=== PATIENT | female | born 1970 | race Caucasian/White ===

== ENCOUNTER → 2017-10-05 09:59 | Outpatient (CLI) | payer MEDICARE ==
[2011-03-18 10:22] VITALS: BMI 32.7
== END | disposition home or self-care (01) ==
LOC: D.US 09:59
DX: I12.9 Hypertensive chronic kidney disease with stage 1 through stage 4 chronic kidney disease, or unspecified chronic kidney disease (principal); N18.3 Chronic kidney disease, stage 3 (moderate); Z68.33 Body mass index [BMI] 33.0-33.9, adult

== ENCOUNTER 2018-05-15 05:53 | Emergency (ER) | payer MEDICARE ==
[~2018-05-15] VITALS: Ht 162.6 cm; Wt 75.0 kg
[2018-05-15 05:59] VITALS: Ht 162.6 cm; Wt 75.0 kg
[2018-05-15 06:40] LABS: BASOPHILS 0.6 % (0-2); EOSINOPHILS 3.3 % (0-7); HEMATOCRIT 33.8 % (36.0-48.0); IMMATURE GRANULOCYTES 0.2 % (0-5); LYMPHOCYTES 34.5 % (15-50); MCH 29.6 pg (26.0-34.0); MCHC 32.5 g/dL (31.0-37.0); MCV 90.9 fL (80.0-100.0); MEAN PLATELET VOLUME 9.9 fL (7.4-10.4); MONOCYTES 9.6 % (2-11); NEUTROPHILS 51.8 % (40-80); RBC 3.72 10x6/uL (4.00-5.40); WBC 9.7 10x3/uL (4.8-10.8)
[2018-05-15 06:43] LABS: ALBUMIN 3.2 g/dL (3.4-5.0); ANION GAP 8.2 mmol/L (8-16); BILIRUBIN - TOTAL 0.25 mg/dL (0.2-1.3); CALCIUM 8.7 mg/dL (8.5-10.1); CARBON DIOXIDE 29.7 mmol/L (21.0-32.0); CREATININE - SERUM 1.1 mg/dL (0.6-1.3); POTASSIUM - SERUM 3.9 mmol/L (3.5-5.1); PROTEIN - SERUM 7.2 g/dL (6.4-8.2)
[2018-05-15 06:44] LABS: PLATELET COUNT 322 10x3/uL (130-400)
[2018-05-15 06:47] LABS: APPEARANCE SL CLDY (CLEAR); BILIRUBIN NEGATIVE (NEGATIVE); COLOR YELLOW (YELLOW); GLUCOSE NEGATIVE (NEGATIVE); KETONE NEGATIVE (NEGATIVE); NITRITE POSITIVE (NEGATIVE); PROTEIN NEGATIVE (NEGATIVE); UROBILINOGEN NORMAL (NORMAL)
[2018-05-15 06:48] LABS: BACTERIA FEW /hpf (NONE SEEN); EPITHELIAL CELLS 0-5 /hpf (0-5); RED CELLS - URINE 0-5 /hpf (0-5); WHITE CELLS - URINE 0-5 /hpf (0-5)
[2018-05-15] MEDS ORDERED: KEFLEX500 MG PO (08:48)
[2018-05-15] MEDS ORDERED: PROTONIX40 MG PO (08:48)
[2018-05-15] MEDS ORDERED: MACROBID100 MG PO (08:48)
[2018-05-15] MEDS ORDERED: LEVSIN/ANASP0.125 MG PO (08:51)
[2018-05-15 09:05] VITALS: BP 100/64
== END 2018-05-15 09:00 | disposition home or self-care (01) ==
LOC: D.ER 05:53
PROVIDERS: Family Medicine
DX: R10.9 Unspecified abdominal pain (principal); R10.13 Epigastric pain; N39.0 Urinary tract infection, site not specified

== ENCOUNTER 2020-02-16 08:50 | Inpatient (IN) | payer MEDICARE ==
[~2020-02-16] VITALS: Ht 162.6 cm; Wt 86.2 kg
[~2020-02-16 08:50] MED LIST: KEFLEX500 MG PO; LEVSIN/ANASP0.125 MG PO; MACROBID100 MG PO; PROTONIX40 MG PO
[2020-02-16 09:12] LABS: BASOPHILS 0.5 % (0-2); EOSINOPHILS 6.1 % (0-7); HEMATOCRIT 37.7 % (36.0-48.0); HEMOGLOBIN 12.1 g/dL (12-16); IMMATURE GRANULOCYTES 0.1 % (0-5); MCH 28.7 pg (26.0-34.0); MCHC 32.1 g/dL (31.0-37.0); MCV 89.5 fL (80.0-100.0); MEAN PLATELET VOLUME 10.2 fL (7.4-10.4); MONOCYTES 9.3 % (2-11); RBC 4.21 10x6/uL (4.00-5.40); RDW 13.7 % (11.5-14.5); WBC 7.6 10x3/uL (4.8-10.8)
[2020-02-16 09:15] LABS: PLATELET COUNT 242 10x3/uL (130-400)
[2020-02-16 09:18] LABS: BILIRUBIN NEGATIVE (NEGATIVE); GLUCOSE NEGATIVE (NEGATIVE); KETONE NEGATIVE (NEGATIVE); NITRITE NEGATIVE (NEGATIVE); SPECIFIC GRAVITY 1.005 (1.005-1.020); UROBILINOGEN NORMAL (NORMAL)
[2020-02-16 09:20] LABS: BACTERIA FEW /hpf (NEGATIVE); EPITHELIAL CELLS 0-5 /hpf (0-5); RED CELLS - URINE 0-5 /hpf (0-5)
[2020-02-16 09:28] LABS: CALC OSMOLALITY 274 mosm/kg (275-300); CALCIUM 8.8 mg/dL (8.5-10.1); CARBON DIOXIDE 27.3 mmol/L (21.0-32.0); CHLORIDE - SERUM 102 mmol/L (98-107); POTASSIUM - SERUM 3.3 mmol/L (3.5-5.1); SODIUM 136 mmol/L (136-145); UREA NITROGEN 9 mg/dL (7-18); eGFR NON AFRICAN AMERICAN 62 mL/min (90-120)
[2020-02-16 09:33] LABS: GLUCOSE 177 mg/dL (74-106)
[2020-02-16 09:38] LABS: ALBUMIN 3.6 g/dL (3.4-5.0); ALKALINE PHOSPHATASE 283 U/L (30-120); ALT (SGPT) 296 U/L (10-68); AMYLASE - SERUM 15 U/L (25-115); BILIRUBIN - TOTAL 1.23 mg/dL (0.2-1.3); PROTEIN - SERUM 7.5 g/dL (6.4-8.2)
[2020-02-16 09:39] LABS: LIPASE 39 U/L (73-393); TROPONIN-I < 0.017 ng/mL (0.000-0.060)
--- NOTE | 2020-02-16 10:18 | NUR ---
PT TO CT VIA STRETCHER.
--- NOTE | 2020-02-16 13:30 | NUR ---
arrived to unit per w/c from er, iv to rac, cont to monitor pain
[2020-02-16] MEDS ORDERED: AMITRIPTYLINE100 MG PO (13:54)
[2020-02-16 13:56] VITALS: BP 137/89; BMI 32.7
[2020-02-16] MEDS ORDERED: MOBIC7.5 MG PO (15:57)
[2020-02-16] MEDS ORDERED: ROPINIROLE HCL2 MG PO (15:57)
[2020-02-16] MEDS ORDERED: LEXAPRO20 MG PO (15:58)
[2020-02-16] MEDS ORDERED: BACLOFEN10 MG PO (15:59)
[2020-02-16] MEDS ORDERED: ATIVAN0.5 MG PO (15:59)
[2020-02-16] MEDS ORDERED: ZOCOR40 MG PO (16:00)
[2020-02-16] MEDS ORDERED: ZETIA10 MG PO (16:00)
[2020-02-16 20:08] VITALS: BP 150/98
--- NOTE | 2020-02-16 21:30 | NUR ---
PT SUPINE IN BED, A&0 X 4. IN TEARS. REPORTS PAIN LEVEL IS BACK UP. INFORMED PT IT IS TOO EARLY FOR PRN PAIN MEDICATION, SUGGESTED PRN ANXIETY MED TO HELP PT CALM DOWN. SHE AGREED. PT REPORTS SHE FEELS LONELY AND WISHES ALL HER FAMILY COULD BE HERE. INFORMED PT SHE COULD HAVE A VISITOR, BUT PT STATES NO ONE IS ABLE.
[2020-02-17] VITALS (12 sets, daily range): BP systolic 119–152; BP diastolic 73–773; Ht 162.6 cm; Wt 86.2 kg
--- NOTE | 2020-02-17 03:00 | NUR ---
I have reviewed this patient and I concur with the Shift Assessment completed by the Licensed Practical Nurse today this shift.
[2020-02-17 05:20] LABS: BASOPHILS 1.5 % (0-2); EOSINOPHILS 9.1 % (0-7); HEMATOCRIT 36.4 % (36.0-48.0); HEMOGLOBIN 11.3 g/dL (12-16); IMMATURE GRANULOCYTES 0.2 % (0-5); LYMPHOCYTES 32.8 % (15-50); MCH 28.3 pg (26.0-34.0); MEAN PLATELET VOLUME 10.6 fL (7.4-10.4); MONOCYTES 8.2 % (2-11); NEUTROPHILS 48.2 % (40-80); PLATELET COUNT 241 10x3/uL (130-400); RDW 13.8 % (11.5-14.5); WBC 6.5 10x3/uL (4.8-10.8)
[2020-02-17 05:35] LABS: APTT 34.1 SECONDS (22.8-39.4); INR 1.06 (0.85-1.17); PROTIME 13.7 SECONDS (11.6-15.0)
[2020-02-17 05:42] LABS: AMYLASE - SERUM 12 U/L (25-115); CALC OSMOLALITY 277 mosm/kg (275-300); CALCIUM 8.3 mg/dL (8.5-10.1); CARBON DIOXIDE 28.8 mmol/L (21.0-32.0); CHLORIDE - SERUM 106 mmol/L (98-107); CREATININE - SERUM 0.8 mg/dL (0.6-1.3); GLUCOSE 141 mg/dL (74-106); MAGNESIUM - SERUM 1.7 mg/dL (1.8-2.4); PHOSPHOROUS 4.2 mg/dL (2.5-4.9); POTASSIUM - SERUM 3.2 mmol/L (3.5-5.1); SODIUM 140 mmol/L (136-145); eGFR NON AFRICAN AMERICAN 81 mL/min (90-120)
[2020-02-17 05:48] LABS: LIPASE 31 U/L (73-393); UREA NITROGEN 5 mg/dL (7-18)
--- NOTE | 2020-02-17 06:55 | NUR ---
A&O RESTING IN BED WITH EYES OPEN. NO C/O PAIN. NO S/S OF ACUTE DISTRESS NOTED. NPO D/T BIOPSY AND MRI SCHEDULED TODAY. IV TO RIGHT AC, NS INFUSING @ 75ML/HR. SITE PATENT WITHOUT REDNESS OR SWELLING. POTASSIUM 3.2 AND MAG 1.7 THIS AM, WILL FOLLOW ELECTROLYTE PROTOCOL. SCDS ON. DENIES ANY NEEDS AT THIS TIME. CALL LIGHT IN REACH. WILL CONTINUE TO MONITOR.
[2020-02-17 09:43] LABS: ALBUMIN 3.3 g/dL (3.4-5.0); BILIRUBIN - DIRECT 0.49 mg/dL (0.00-0.30); BILIRUBIN - INDIRECT 0.41 mg/dL (0.00-1.00); BILIRUBIN - TOTAL 0.9 mg/dL (0.2-1.3); PROTEIN - SERUM 6.9 g/dL (6.4-8.2)
--- NOTE | 2020-02-17 11:20 | NUR ---
I have reviewed this patient and I concur with the Shift Assessment completed by the Licensed Practical Nurse today this shift.
--- NOTE | 2020-02-17 15:46 | NUR ---
RECEIVED PATIENT FROM INTERVENTIONAL RADIOLOGY. ALERT AND ORIENTED, SLIGHTLY DROWSY. FAMILY AT BEDSIDE. VITALS STABLE. DRESSING TO LUQ, C/D/I. DENIES ANY NEEDS AT THIS TIME. CALL LIGHT IN REACH. WILL CONTINUE TO MONITOR.
--- NOTE | 2020-02-17 18:28 | NUR ---
RESTING IN BED WITH EYES OPEN. NO S/S OF ACUTE DISTRESS NOTED. DENIES ANY NEEDS AT THIS TIME. CALL LIGHT IN REACH. WILL CONTINUE TO MONITOR.
--- NOTE | 2020-02-17 19:21 | NUR ---
PATIENT RESTING IN BED WITH NO S/S OF DISTRESS AND DENIES NEEDS AT THIS TIME. BED IN LOWEST POSITION AND CALL LIGHT WITHIN REACH. ENCOURAGED THE PATIENT TO CALL IF SHE HAS NEEDS. WILL CONTINUE TO MONITOR.
--- NOTE | 2020-02-17 20:38 | NUR ---
ADMINISTERED MEDS PER ORDERS. PATIENT DENIES OTHER NEEDS. WILL CONTINUE TO MONITOR.
[2020-02-18 04:00] VITALS: BP 120/75
[2020-02-18 05:59] LABS: BASOPHILS 0.3 % (0-2); EOSINOPHILS 7.7 % (0-7); HEMATOCRIT 36.7 % (36.0-48.0); HEMOGLOBIN 11.4 g/dL (12-16); IMMATURE GRANULOCYTES 0.3 % (0-5); LYMPHOCYTES 14.5 % (15-50); MCH 28.2 pg (26.0-34.0); MCHC 31.1 g/dL (31.0-37.0); MCV 90.8 fL (80.0-100.0); MEAN PLATELET VOLUME 10.5 fL (7.4-10.4); MONOCYTES 10.9 % (2-11); NEUTROPHILS 66.3 % (40-80); PLATELET COUNT 227 10x3/uL (130-400); RBC 4.04 10x6/uL (4.00-5.40)
[2020-02-18 06:04] LABS: CALC OSMOLALITY 272 mosm/kg (275-300); CALCIUM 8.9 mg/dL (8.5-10.1); CARBON DIOXIDE 27.5 mmol/L (21.0-32.0); CHLORIDE - SERUM 103 mmol/L (98-107); CREATININE - SERUM 0.8 mg/dL (0.6-1.3); GLUCOSE 127 mg/dL (74-106); MAGNESIUM - SERUM 1.8 mg/dL (1.8-2.4); PHOSPHOROUS 3.2 mg/dL (2.5-4.9); POTASSIUM - SERUM 3.8 mmol/L (3.5-5.1); SODIUM 137 mmol/L (136-145); UREA NITROGEN 4 mg/dL (7-18); eGFR NON AFRICAN AMERICAN 81 mL/min (90-120)
[2020-02-18 06:29] LABS: WBC 8.9 10x3/uL (4.8-10.8)
--- NOTE | 2020-02-18 08:26 | NUR ---
PT VOMITING, CLEAR. REPORTING HEADACHE OF 10/10, MEDICATED PER ORDERS, WILL CONTINUE TO MONITOR.
--- NOTE | 2020-02-18 10:38 | NUR ---
PT ALERT X 4. BREATH SOUNDS CLEAR BILAT. BOWEL SOUNDS HYPOACTIVE TO ALL COATS, ABDOMEN TENDER TO LEFT SIDE. IV TO RIGHT AC, PATENT, DRESSING CDI. PT REPORTING PAIN OF 10/10, MEDICATED PER ORDERS, WILL CONTINUE TO MONITOR. BED LOW, CALL LIGHT IN REACH. NO OTHER NEEDS AT THIS TIME.
[2020-02-18 14:09] LABS: CEA 22.1 ng/mL (0.0-4.7)
[2020-02-18 14:25] VITALS: BP 141/95
[2020-02-18 18:33] VITALS: BP 150/96
[2020-02-18 20:00] VITALS: BP 128/88
[2020-02-19 04:00] VITALS: BP 117/68; BP 126/84
--- NOTE | 2020-02-19 05:11 | NUR ---
I have reviewed this patient and I concur with the Shift Assessment completed by the Licensed Practical Nurse today this shift.
[2020-02-19 06:04] LABS: BASOPHILS 0.4 % (0-2); EOSINOPHILS 7.1 % (0-7); IMMATURE GRANULOCYTES 0.1 % (0-5); LYMPHOCYTES 24.8 % (15-50); MCH 28.6 pg (26.0-34.0); MCHC 31.6 g/dL (31.0-37.0); MCV 90.5 fL (80.0-100.0); MEAN PLATELET VOLUME 10.8 fL (7.4-10.4); MONOCYTES 13.1 % (2-11); NEUTROPHILS 54.5 % (40-80); PLATELET COUNT 225 10x3/uL (130-400); RDW 13.8 % (11.5-14.5); WBC 7.2 10x3/uL (4.8-10.8)
[2020-02-19 06:16] LABS: CALC OSMOLALITY 274 mosm/kg (275-300); CALCIUM 8.9 mg/dL (8.5-10.1); CARBON DIOXIDE 31.9 mmol/L (21.0-32.0); CHLORIDE - SERUM 101 mmol/L (98-107); CREATININE - SERUM 0.8 mg/dL (0.6-1.3); GLUCOSE 135 mg/dL (74-106); MAGNESIUM - SERUM 2.1 mg/dL (1.8-2.4); PHOSPHOROUS 3.4 mg/dL (2.5-4.9); SODIUM 138 mmol/L (136-145); UREA NITROGEN 5 mg/dL (7-18); eGFR NON AFRICAN AMERICAN 81 mL/min (90-120)
[2020-02-19 06:17] LABS: POTASSIUM - SERUM 3.2 mmol/L (3.5-5.1)
[2020-02-19] MEDS ORDERED: Pancrease 5000,17,00 PO (09:09)
[2020-02-19] MEDS ORDERED: REGLAN10 MG PO (09:10)
[2020-02-19] MEDS ORDERED: PROTONIX40 MG PO (09:10)
[2020-02-19 09:50] VITALS: BP 135/95
--- NOTE | 2020-02-19 09:58 | NUR ---
PT ALERT X 4. BREATH SOUNDS CLEAR BILAT. NO IV ACCESS AT THIS TIME. PT REPORTING PAIN OF 5/10, MEDICATED PER ORDERS, WILL CONTINUE TO MONITOR. BED LOW, CALL LIGHT IN REACH. NO OTHER NEEDS AT THIS TIME.
[2020-02-19] MEDS ORDERED: HYDROCODON-ACE1 EAC7 PO ×2 (11:49→11:50)
--- NOTE | 2020-02-19 13:24 | MORECARE ---
CASE MANAGEMENT DISCHARGE SUMMARY PATIENT: ANGELA BOYCE UNIT: [id number] ADM DATE: 02/16/20 AGE: 50 : 72 SEX: F ROOM/BED: D.2217 AUTHOR: ADRIANNA PARMAR PHYSICIAN: REFERRING PHYSICIAN: REI AGOSTO MD DATE OF SERVICE: 02/19/20 Discharge Plan Patient Name: ANGELA BOYCE Facility: [facility]:[place] : 1970 Planned Disposition: Home or Self Care Anticipated Discharge Date: Discharge Date: Expected LOS: Initial Reviewer: [email or web address] Initial Review Date: 02/16/2020 Generated: 02/19/20 2:23 pm Patient Name: ANGELA BOYCE Page [phone] at 1324 All edits/amendments must be made on the electronic document DICTATION DATE: 02/19/20 1324 CRYSTAL GRINDER: ALYSSA 02/19/20 1324 RPT#: [id number] DC DATE: STATUS: ADM IN [facility] [address] [place] [address] END OF REPORT
[2020-02-19 13:28] VITALS: BP 135/86
--- NOTE | 2020-02-19 13:32 | MORECARE ---
CASE MANAGEMENT DISCHARGE SUMMARY PATIENT: ANGELA BOYCE UNIT: [id number] ADM DATE: 02/16/20 AGE: 50 : 72 SEX: F ROOM/BED: D.2217 AUTHOR: AGATADOC PHYSICIAN: REFERRING PHYSICIAN: REI AGOSTO MD DATE OF SERVICE: 02/19/20 Discharge Plan Patient Name: ANGELA BOYCE Facility: [facility]:[place] : 1970 Planned Disposition: Home or Self Care Anticipated Discharge Date: Discharge Date: Expected LOS: Initial Reviewer: [email or web address] Initial Review Date: 02/16/2020 Generated: 02/19/20 2:32 pm Comments DCP- Discharge Planning Updated by [email or web address]: Katrina Forbes on 02/19/20 12:[address] Patient Name: ANGELA BOYCE Admission Status: ER Accout number: [id number] Admission Date: 02-16-2020 : 1970 Admission Diagnosis: Attending: REI AGOSTO Current LOS: 3 Anticipated DC Date: Planned Disposition: Home or Self Care Primary Insurance: MEDICARE A & B Discharge Planning Comments: CM met with patient to complete initial dc planning assessment. CM educated patient on the CM role and verbal consent given by patient to complete assessment. Patient lives at home with her son and dad where she is independent with her care. At discharge patient plans to return home and feels this is a safe discharge. CM discussed availability of home health, rehab services, and medical equipment. Patient denied known discharge needs at this time. IMM served and explained. Her daughter will be her speedboat driver home. CM will continue to follow and will assist as needed with dc plans/needs. Special Effects Artist: Katrina Forbes DCPIA - Discharge Planning Initial Assessment Updated by [email or web address]: Katrina Forbes on 02/19/20 1:24 pm * Is the patient Alert and Oriented? Yes * How many steps to enter\exit or inside your home? * PCP DR LAWS * Pharmacy [facility] * Preadmission Environment Home with Family * ADLs Independent * Equipment None * List name and contact numbers for known caregivers / representatives who currently or will assist patient after discharge: MAURY (DAUGHTER) [phone] * Verbal permission to speak to the caregivers and representatives has been obtained from the patient. N/A * Community resources currently utilized None * Additional services required to return to the preadmission environment? No * Can the patient safely return to the preadmission environment? Yes * Has this patient been hospitalized within the prior 30 days at any hospital? No Coverage Notice Reviewer: [email or web address] Xochitl Forbes Notice Issued Date-Time: 02/19/2020 13:15 Notice Type: IM Discharge Notice Notice Delivered To: Patient Relationship to Patient: Information Security Architect Name: Delivery Method: HAND - Hand Delivered Aicha Days: Prior Verbal Notification: Recipient Understood Notice: Yes Recipient Signature: Yes Med Rec Note Co-signed by Attending: Coverage Notice Comment: Last DP export: 02/19/20 12:24 pm Patient Name: ANGELA BOYCE Page [id number] at 1332 All edits/amendments must be made on the electronic document DICTATION DATE: 02/19/20 1332 TELECOMMUNICATIONS MANAGER: ALYSSA 02/19/20 1332 RPT#: [id number] DC DATE: STATUS: ADM IN [facility] [address] [place] [address] END OF REPORT
--- NOTE | 2020-02-19 16:14 | NUR ---
DISCHARGE PAPERWORK SIGNED, ALL QUESTIONS ANSWERED. PT REQUESTED TO AMBULATE OUT.
--- NOTE | 2020-02-19 17:16 | MORECARE ---
CASE MANAGEMENT DISCHARGE SUMMARY PATIENT: ANGELA BOYCE UNIT: [id number] ADM DATE: 02/16/20 AGE: 50 : 72 SEX: F ROOM/BED: D.2217 AUTHOR: ADRIANNA PARMAR PHYSICIAN: REFERRING PHYSICIAN: REI AGOSTO MD DATE OF SERVICE: 02/19/20 Discharge Plan Patient Name: ANGELA BOYCE Facility: [facility]:[place] : 1970 Planned Disposition: Home or Self Care Anticipated Discharge Date: Discharge Date: 02/19/2020 Expected LOS: Initial Reviewer: [email or web address] Initial Review Date: 02/16/2020 Generated: 02/19/20 6:15 pm Comments DCP- Discharge Planning Updated by [email or web address]: Katrina Forbes on 02/19/20 12:[address] Patient Name: ANGELA BOYCE Admission Status: ER Accout number: [id number] Admission Date: 02-16-2020 : 1970 Admission Diagnosis: Attending: REI AGOSTO Current LOS: 3 Anticipated DC Date: Planned Disposition: Home or Self Care Primary Insurance: MEDICARE A & B Discharge Planning Comments: CM met with patient to complete initial dc planning assessment. CM educated patient on the CM role and verbal consent given by patient to complete assessment. Patient lives at home with her son and dad where she is independent with her care. At discharge patient plans to return home and feels this is a safe discharge. CM discussed availability of home health, rehab services, and medical equipment. Patient denied known discharge needs at this time. IMM served and explained. Her daughter will be her canal driver home. CM will continue to follow and will assist as needed with dc plans/needs. Application Trainer: Katrina Forbes DCPIA - Discharge Planning Initial Assessment Updated by [email or web address]: Katrina Forbes on 02/19/20 1:24 pm * Is the patient Alert and Oriented? Yes * How many steps to enter\exit or inside your home? * PCP DR LAWS * Pharmacy [facility] * Preadmission Environment Home with Family * ADLs Independent * Equipment None * List name and contact numbers for known caregivers / representatives who currently or will assist patient after discharge: MAURY (DAUGHTER) [phone] * Verbal permission to speak to the caregivers and representatives has been obtained from the patient. N/A * Community resources currently utilized None * Additional services required to return to the preadmission environment? No * Can the patient safely return to the preadmission environment? Yes * Has this patient been hospitalized within the prior 30 days at any hospital? No Coverage Notice Reviewer: [email or web address] Xochitl Forbes Notice Issued Date-Time: 02/19/2020 13:15 Notice Type: IM Discharge Notice Notice Delivered To: Patient Relationship to Patient: Assembler Dc Field Ring Name: Delivery Method: HAND - Hand Delivered Aicha Days: Prior Verbal Notification: Recipient Understood Notice: Yes Recipient Signature: Yes Med Rec Note Co-signed by Attending: Coverage Notice Comment: Last DP export: 02/19/20 12:32 pm Patient Name: ANGELA BOYCE Page [id number] at 1716 All edits/amendments must be made on the electronic document DICTATION DATE: 02/19/201715 DESIGN TECH: ALYSSA 02/19/201715 RPT#: [id number] DC DATE:02/19/20 STATUS: DIS IN [facility] [address] [place] [address] END OF REPORT
== END 2020-02-19 16:15 | disposition home or self-care (01) | DRG 436 ==
LOC: D.ER 08:50 → D.MS 11:29 → D.ER 12:55 → D.MS 02-19 16:15
PROVIDERS: Family Medicine; Family Medicine Adult Medicine; General Practice; Surgery; ADMIT Family Medicine; ATTEND Family Medicine
PROC: 0FBG3ZX Excision of Pancreas, Percutaneous Approach, Diagnostic (ICD-10-PCS; principal; 2020-02-17 14:00)
DX: C25.9 Malignant neoplasm of pancreas, unspecified (principal); N39.0 Urinary tract infection, site not specified; E87.6 Hypokalemia; I10 Essential (primary) hypertension; K21.9 Gastro-esophageal reflux disease without esophagitis; F41.8 Other specified anxiety disorders; F41.9 Anxiety disorder, unspecified; R11.2 Nausea with vomiting, unspecified